=== PATIENT | female | born 1990 | race Caucasian/White ===

== ENCOUNTER 2018-06-10 10:46 | Emergency (ER) | payer MEDICAID, OTHER ==
[~2018-06-10] VITALS: Ht 167.6 cm; Wt 64.4 kg
[~2018-06-10 10:46] MED LIST: ALPR2TAB1 PO; MIRT15TA PO; QUET50TA PO
--- NOTE | 2018-06-10 10:48 | NUR ---
PATIENT WHEELCHAIR ASSISTED TO BED 4.
[2018-06-10 10:50] VITALS: BP 114/69
--- NOTE | 2018-06-10 11:06 | NUR ---
27/F bib self with c/o generalized body pain, shakiness, and weakness x 1 wk, progressively getting worse. 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 Seen and d/c at [facility] today. Patient is aox4 to person, time, situation, and place but delay in answering questions at this time. Skin is warm/dry/color apprioriate for ethnicity. hx--patient denies rx--patient denies
--- NOTE | 2018-06-10 11:13 | NUR ---
Patient being evaluated by DR HOWARD at bedside.
[2018-06-10] MEDS ORDERED: KETOROLAC 30 MG/ML VIAL IVP ONE (11:25)
[2018-06-10] MEDS ORDERED: LORazepam 2 MG/ML VIAL IVP ONE (11:50)
[2018-06-10] MEDS ORDERED: LORazepam 2 MG/ML VIAL ONE (11:59)
[2018-06-10 12:32] VITALS: BP 119/71
--- NOTE | 2018-06-10 12:32 | NUR ---
Patient discharged with v/s stable. Written and verbal after care instructions given and explained. Patient alert, oriented and verbalized understanding of instructions. Ambulatory with steady gait. All questions addressed prior to discharge. ID band removed. Patient advised to follow up with PMD. Rx of MOTRIN, ZOFRAN &ATARAX & LIBRIUM given. Patient educated on indication of medication including possible reaction and side effects. Opportunity to ask questions provided and answered.
--- NOTE | 2018-06-10 12:32 | NUR ---
Note goldenone in EDM - 06/10/18 at 1248 by [facility] Patient discharged with v/s stable. Written and verbal after care instructions given and explained. Patient alert, oriented and verbalized understanding of instructions. Ambulatory with steady gait. All questions addressed prior to discharge. ID band removed. Patient advised to follow up with PMD. Rx of MOTRIN, ZOFRAN &ATARAX given. Patient educated on indication of medication including possible reaction and side effects. Opportunity to ask questions provided and answered.
== END 2018-06-10 12:32 | disposition home or self-care (01) ==
LOC: MED 10:46
DX: F13.20 Sedative, hypnotic or anxiolytic dependence, uncomplicated (principal); R11.2 Nausea with vomiting, unspecified; Z79.899 Other long term (current) drug therapy
CPT/HCPCS: 96374; 96375; 99283; J1885; J2060